=== PATIENT | male | born 1990 | race Caucasian/White ===

== ENCOUNTER 2020-07-24 12:39 | Outpatient (CLI) | payer OTHER, SELFPAY | END 2020-07-24 12:40 | disposition home or self-care (01) | PROVIDERS: PCP Family Medicine; Visit Provider Family Medicine | DX: H91.93 Unspecified hearing loss, bilateral (principal) | CPT/HCPCS: 92552; 92556; 92567; 92587 ==

== ENCOUNTER 2023-10-12 10:08 | Outpatient (CLI) | payer OTHER, SELFPAY | END 2023-10-12 10:09 | disposition home or self-care (01) | LOC: ANHBWCAUD 10:09 | PROVIDERS: PCP Family Medicine; Visit Provider Family Medicine | DX: H91.93 Unspecified hearing loss, bilateral (principal) | CPT/HCPCS: 92567 ==

== ENCOUNTER 2023-12-21 10:24 | Outpatient (CLI) | payer OTHER, SELFPAY | END 2023-12-21 10:25 | disposition home or self-care (01) | LOC: ANHBWCAUD 10:25 | PROVIDERS: PCP Family Medicine; Visit Provider Family Medicine | DX: H90.41 Sensorineural hearing loss, unilateral, right ear, with unrestricted hearing on the contralateral side (principal) | CPT/HCPCS: 92552; 92556; 92567 ==